=== PATIENT | female | born 1995 | race American Indian/Alaskan Native ===

== ENCOUNTER 2021-04-22 10:23 | Outpatient (CLI) | payer OTHER ==
[2021-04-22 11:39] VITALS: BP 113/59
[2021-04-22 11:58] LABS: Bilirubin,Urine NEG (Negative); Blood,Urine NEG (Negative); Color,Urine Yellow (Yellow); Mucus,Urine 3+ /HPF; Urobilinogen,Urine < 2.0 mg/dL (<2.0)
[2021-04-22 12:03] LABS: Amphetamine Screen,Urine Negative; Benzodiazepines Screen,Urine Negative; Cannabinoid Screen,Urine Negative; Cocaine Screen,Urine Negative; Methadone Screen,Urine Negative; Opiate Screen,Urine Negative
[2021-04-22] MEDS ORDERED: LACTATED RINGERS 1,000 ML IV ONE (12:15)
== END 2021-04-22 12:21 | disposition home or self-care (01) ==
LOC: TRG 10:23 → APU 10:25 → TRG 12:21
PROVIDERS: ATTEND Obstetrics & Gynecology
DX: O26.893 Other specified pregnancy related conditions, third trimester (principal); R20.0 Anesthesia of skin; Z3A.28 28 weeks gestation of pregnancy
CPT/HCPCS: 59025; 80307; 81001

== ENCOUNTER 2021-07-08 09:04 | Inpatient (IN) | payer OTHER ==
[2021-07-08] MEDS ORDERED: TERBUTALINE 1 MG/1 ML INJ SUB-Q PRN (11:37)
[2021-07-08] MEDS ORDERED: LIDOCAINE (2%) 20 MG/1 ML VIAL 20 ML MDV INFILTRATI ONE (11:37)
[2021-07-08] MEDS ORDERED: MINERAL OIL 30 ML ORAL LIQD PO PRN ×2 (11:37→12:23)
[2021-07-08] MEDS ORDERED: OXYTOCIN DRIP 30 UNITS/500 ML BAG IV SCH ×2 (12:00)
[2021-07-08 12:04] LABS: Mean Corpuscular HGB Conc 30 % (30-34); Mean Corpuscular Volume 75 fl (79-97); Platelet Count 270 K/mm3 (140-440); Red Blood Count 3.06 M/mm3 (3.65-5.03); Red Cell Distribution Width 18.8 % (13.2-15.2)
[2021-07-08] MEDS ORDERED: NALOXONE 0.4 MG/1 ML INJ IV PRN (12:23)
[2021-07-08] MEDS ORDERED: miSOPROStol 200 MCG TAB PR PRN (12:23)
[2021-07-08] MEDS ORDERED: METHYLERGONOVINE MALEATE 0.2 MG/ML VIAL IM PRN (12:23)
[2021-07-08] MEDS ORDERED: fentaNYL 100 MCG/2 ML INJ IV PRN (12:23)
[2021-07-08] MEDS ORDERED: LOPERAMIDE 2 MG CAP PO PRN (12:23)
[2021-07-08] MEDS ORDERED: ePHEDrine SULFATE 50 MG/1 ML INJ IV PRN (12:23)
[2021-07-08] MEDS ORDERED: CARBOPROST TROMETHAMINE 250 MCG/1 ML INJ IM PRN (12:23)
[2021-07-08] MEDS ORDERED: BUTORPHANOL 2 MG/1 ML INJ IV PRN (12:23)
[2021-07-08] MEDS ORDERED: OXYTOCIN 10 UNIT/1 ML INJ IM PRN (12:23)
[2021-07-08] MEDS ORDERED: ACETAMINOPHEN 325 MG TAB PO PRN (12:23)
[2021-07-08] MEDS ORDERED: ONDANSETRON 4 MG/2 ML INJ IV PRN (12:23)
[2021-07-08] MEDS: LACTATED RINGERS 1,000 ML IV SCH ×2 (12:29→20:24)
[2021-07-08] MEDS ORDERED: LACTATED RINGERS 1,000 ML IV SCH (12:30)
--- NOTE | 2021-07-08 21:39 | History and Physical Report ---
History of Present Illness Date of examination: 07/08/21 Date of admission: 07/08/21 09:04 Chief complaint: induction History of present illness: 26-year-old -0-0-2 at 39+0 weeks who presents for induction of labor secondary to obesity. The patient initiated her care in the first trimester of her . Her is also complicated by anemia. The patient is GBS negative Past History Past Medical History: other (Obesity) Past Surgical History: other (Orthopedic surgery) Social history: - Obstetrical History Expected Date of Delivery: 07/15/21 Actual Gestation: 39 Week(s) 0 Day(s) : 3 Para: 2 Hx # Term Pregnancies: 2 Number of Pregnancies: 0 Spontaneous Abortions: 0 Induced : 0 Number of Living Children: 2 Medications and Allergies Allergies Allergy/AdvReac Type Severity Reaction Status Date / Time No Known Allergies Allergy Verified 04/22/21 11:11 Home Medications Medication Instructions Recorded Confirmed Last Taken Type RX: No Known Home Medications [No 07/08/21 07/08/21 Unknown History Reported Home Medications] Active Meds: Active Medications Acetaminophen (Acetaminophen 325 Mg Tab) 650 mg PO Q4H PRN PRN Reason: Pain, Mild (1-3) Butorphanol Tartrate (Butorphanol 2 Mg/1 Ml Inj) 1 mg IV Q2H PRN PRN Reason: Pain, Moderate(4-6) LABOR PAIN Carboprost Tromethamine (Carboprost Tromethamine 250 Mcg/1 Ml Inj) 250 mcg IM ONCE PRN PRN Reason: Uterine Bleeding Ephedrine Sulfate (Ephedrine Sulfate 50 Mg/1 Ml Inj) 10 mg IV Q2M PRN PRN Reason: Hypotension Fentanyl (Fentanyl 100 Mcg/2 Ml Inj) 100 mcg IV Q2H PRN PRN Reason: Pain,Severe (7-10) LABOR PAIN Oxytocin/Sodium Chloride (Pitocin/Ns 30 Unit/500ml) 30 units in 500 mls @ 2 mls/hr IV TITR VICENTE; Protocol Last Titration: 07/08/21 17:47 Dose: 10 ml/hr, 10 mls/hr Documented by: Lactated Ringer's (Lactated Ringers) 1,000 mls @ 125 mls/hr IV DIRECT VICENTE Last Admin: 07/08/21 20:24 Dose: 125 mls/hr Documented by: Oxytocin/Sodium Chloride (Pitocin/Ns 30 Unit/500ml) 30 units in 500 mls @ 40 mls/hr IV TITR VICENTE; Protocol Lactated Ringer's (Lactated Ringers) 1,000 mls @ 125 mls/hr IV DIRECT VICENTE Loperamide HCl (Loperamide 2 Mg Cap) 2 mg PO ONCE PRN PRN Reason: give with Hemabate Methylergonovine Maleate (Methylergonovine Maleate 0.2 Mg/Ml Vial) 0.2 mg IM ONCE PRN PRN Reason: Uterine Bleeding Mineral Oil (Mineral Oil 30 Ml Oral Liqd) 30 ml PO QHS PRN PRN Reason: Constipation Mineral Oil (Mineral Oil 30 Ml Oral Liqd) 30 ml PO QHS PRN PRN Reason: Constipation Misoprostol (Misoprostol 200 Mcg Tab) 800 mcg DE ONCE PRN PRN Reason: Uterine Bleeding Naloxone HCl (Naloxone 0.4 Mg/1 Ml Inj) 0.1 mg IV Q2MIN PRN PRN Reason: Res Rate </= 8 or 02 SAT < 92% Ondansetron HCl (Ondansetron 4 Mg/2 Ml Inj) 4 mg IV Q8H PRN PRN Reason: Nausea And Vomiting Oxytocin (Oxytocin 10 Unit/1 Ml Inj) 10 unit IM ONCE PRN PRN Reason: Uterine Bleeding Terbutaline Sulfate (Terbutaline 1 Mg/1 Ml Inj) 0.25 mg SUB-Q ONCE PRN PRN Reason: Hyperstimulation/Hypertonicity Review of Systems All systems: negative Genitourinary: no leakage of fluid, no contractions - Vital Signs Vital signs: Vital Signs Temp 98.3 F 07/08/21 10:57 Temp Pulse Resp BP Pulse Ox 98.2 F 90 20 100/57 100 07/08/21 20:18 07/08/21 21:29 07/08/21 20:18 07/08/21 20:26 07/08/21 21:29 - Physical Exam Breasts: Positive: deferred Cardiovascular: Regular rate Lungs: Positive: Clear to auscultation Abdomen: Positive: normal appearance Results Result Diagrams: 07/08/21 11:15 Abnormal lab results 07/08/21 Range/Units 11:15 RBC 3.06 L (3.65-5.03) M/mm3 Hgb 7.0 L (10.1-14.3) gm/dl Hct 23.0 L (30.3-42.9) % MCV 75 L (79-97) fl MCH 23 L (28-32) pg RDW 18.8 H (13.2-15.2) % All other labs normal. Assessment and Plan - Patient Problems (1) Chronic iron deficiency anemia Current Visit: Yes Status: Acute Plan to address problem: Admit for induction of labor (2) Obesity affecting Current Visit: Yes Status: Acute
[2021-07-09] MEDS ORDERED: ZOLPIDEM 5 MG TAB PO ONE (01:10)
[2021-07-09] MEDS: LACTATED RINGERS 1,000 ML IV SCH (02:32)
[2021-07-09] MEDS ORDERED: ePHEDrine SULFATE 50 MG/1 ML INJ IV PRN (04:18)
[2021-07-09] MEDS ORDERED: NALOXONE 2 MG/2 ML INJ IV PRN (04:18)
--- NOTE | 2021-07-09 04:18 | Anesthesia Consultation ---
Anesthesia Consult and Med Hx Date of service: 07/09/21 - Airway Anesthetic Teeth Evaluation: Good ROM Head & Neck: Adequate Mental/Hyoid Distance: Adequate Mallampati Class: Class II Intubation Access Assessment: Probably Good - Pulmonary Exam CTA: Yes - Cardiac Exam Cardiac Exam: RRR - Pre-Operative Health Status ASA Pre-Surgery Classification: ASA3 Proposed Anesthetic Plan: Epidural - Pulmonary Hx Asthma: No - Cardiovascular System Hx Hypertension: No - Central Nervous System Hx Seizures: No Hx Psychiatric Problems: No - Endocrine Hx Renal Disease: No Hx Hypothyroidism: No Hx Hyperthyroidism: No - Hematic Hx Anemia: Yes Hx Sickle Cell Disease: No - Other Systems Hx Alcohol Use: No Hx Obesity: Yes
--- NOTE | 2021-07-09 05:41 | Progress Note ---
Labor Epidural - Labor Epidural Start Time: 04:29 Stop Time: 05:27 Performed by:: NED BERG Procedure: Patient is requesting epidural for labor pain. H&P, and labs reviewed. Procedure explained, questions answered, consent obtained. Patient in sitting position with blood pressure cuff and pulse ox on and working. Timeout performed immediately before start of procedure. Sterile chlorahexadine 0.5% prep/drape. 3 mL 1% lidocaine skin wheal. Multiple attempts at multiple levels unsuccessful. Ultrasound machine brought to room and back scanned, marked, and repositioned. Patient re-prepped and draped. 18-gauge docBeattead epidural needle advanced to [id number] with saline at 10 cm far left of midline. Epidural catheter advanced to [15] cm, negative aspiration for blood and csf, negative test dose 3 ml 1.5% lidocaine with epinephrine. Epidural dexmedetomidine [30] mcg administered. Steri-strips and tegaderm applied, followed by tape reinforcement. Patient slept through most of the procedure.
[2021-07-09] MEDS: fentaNYL-BUPIV 2 MCG/ML-0.125% 200 MCG/100 ML BAG EPIDURAL SCH ×2 (05:57→13:30)
--- NOTE | 2021-07-09 08:39 | Progress Note ---
Assessment and Plan - Patient Problems (1) Encounter for induction of labor Current Visit: Yes Status: Acute Plan to address problem: AROM @ 0824, clear fluids, tolerated well Continue Pitocin titration as tolerated Consult anethesia for bolus if needed Anticipate (2) Obesity affecting Current Visit: Yes Status: Acute (3) Chronic iron deficiency anemia Current Visit: Yes Status: Acute Plan to address problem: Asymptomatic Resume oral iron supplementation after delivery Subjective - Subjective Date of service: 07/09/21 Principal diagnosis: induction of labor Interval history: 26-year-old -0-0-2 at 39+0 weeks who presents for induction of labor secondary to obesity. The patient initiated her care in the first trimester of her . Her is also complicated by anemia. The patient is GBS negative Patient reports: movement normal, contractions, no new complaints, no vaginal bleeding Objective - Vital Signs Vital Signs: Vital Signs - 12hr 07/08/21 07/08/21 07/08/21 20:39 20:44 20:49 Pulse Rate 85 75 78 Blood Pressure O2 Sat by Pulse 100 100 100 Oximetry O2 Sat by Pulse Oximetry [ Bilateral Throughout] 07/08/21 07/08/21 07/08/21 20:54 20:59 21:04 Pulse Rate 90 89 86 Blood Pressure O2 Sat by Pulse 99 100 100 Oximetry O2 Sat by Pulse Oximetry [ Bilateral Throughout] 07/08/21 07/08/21 07/08/21 21:09 21:14 21:19 Pulse Rate 94 H 84 103 H Blood Pressure O2 Sat by Pulse 100 100 99 Oximetry O2 Sat by Pulse Oximetry [ Bilateral Throughout] 07/08/21 07/08/21 07/08/21 21:24 21:29 21:34 Pulse Rate 97 H 90 105 H Blood Pressure O2 Sat by Pulse 99 100 100 Oximetry O2 Sat by Pulse Oximetry [ Bilateral Throughout] 07/08/21 07/08/21 07/08/21 21:39 21:44 21:49 Pulse Rate 100 H 81 100 H Blood Pressure O2 Sat by Pulse 100 99 99 Oximetry O2 Sat by Pulse Oximetry [ Bilateral Throughout] 07/08/21 07/08/21 07/08/21 21:54 21:59 22:04 Pulse Rate 84 94 H 86 Blood Pressure O2 Sat by Pulse 99 99 98 Oximetry O2 Sat by Pulse Oximetry [ Bilateral Throughout] 07/08/21 07/08/21 07/08/21 22:09 22:14 22:19 Pulse Rate 86 86 92 H Blood Pressure O2 Sat by Pulse 98 99 99 Oximetry O2 Sat by Pulse Oximetry [ Bilateral Throughout] 07/08/21 07/08/21 07/08/21 22:24 22:29 22:34 Pulse Rate 106 H 89 86 Blood Pressure O2 Sat by Pulse 98 98 98 Oximetry O2 Sat by Pulse Oximetry [ Bilateral Throughout] 07/08/21 07/08/21 07/08/21 22:39 22:44 22:49 Pulse Rate 84 90 91 H Blood Pressure O2 Sat by Pulse 99 98 99 Oximetry O2 Sat by Pulse Oximetry [ Bilateral Throughout] 07/08/21 07/08/21 07/08/21 22:58 23:03 23:08 Pulse Rate 104 H 91 H 95 H Blood Pressure O2 Sat by Pulse 100 100 99 Oximetry O2 Sat by Pulse Oximetry [ Bilateral Throughout] 07/08/21 07/08/21 07/08/21 23:13 23:18 23:23 Pulse Rate 84 89 63 Blood Pressure O2 Sat by Pulse 100 99 100 Oximetry O2 Sat by Pulse Oximetry [ Bilateral Throughout] 07/08/21 07/08/21 07/08/21 23:28 23:33 23:38 Pulse Rate 88 91 H 89 Blood Pressure O2 Sat by Pulse 99 99 99 Oximetry O2 Sat by Pulse Oximetry [ Bilateral Throughout] 07/08/21 07/08/21 07/08/21 23:43 23:48 23:53 Pulse Rate 81 86 89 Blood Pressure O2 Sat by Pulse 100 99 100 Oximetry O2 Sat by Pulse Oximetry [ Bilateral Throughout] 07/08/21 07/09/21 07/09/21 23:58 00:03 00:08 Pulse Rate 98 H 98 H 83 Blood Pressure 118/57 O2 Sat by Pulse 100 100 100 Oximetry O2 Sat by Pulse Oximetry [ Bilateral Throughout] 07/09/21 07/09/21 07/09/21 00:13 00:18 00:23 Pulse Rate 87 83 103 H Blood Pressure O2 Sat by Pulse 100 100 100 Oximetry O2 Sat by Pulse Oximetry [ Bilateral Throughout] 07/09/21 07/09/21 07/09/21 00:28 00:33 00:38 Pulse Rate 87 86 83 Blood Pressure O2 Sat by Pulse 99 98 99 Oximetry O2 Sat by Pulse Oximetry [ Bilateral Throughout] 07/09/21 07/09/21 07/09/21 00:43 00:48 00:53 Pulse Rate 87 89 86 Blood Pressure O2 Sat by Pulse 100 99 98 Oximetry O2 Sat by Pulse Oximetry [ Bilateral Throughout] 07/09/21 07/09/21 07/09/21 00:58 01:03 01:08 Pulse Rate 85 90 80 Blood Pressure O2 Sat by Pulse 100 99 98 Oximetry O2 Sat by Pulse Oximetry [ Bilateral Throughout] 07/09/21 07/09/21 07/09/21 01:13 01:18 01:23 Pulse Rate 95 H 82 89 Blood Pressure O2 Sat by Pulse 100 98 98 Oximetry O2 Sat by Pulse Oximetry [ Bilateral Throughout] 07/09/21 07/09/21 07/09/21 01:28 01:33 01:38 Pulse Rate 88 85 89 Blood Pressure O2 Sat by Pulse 99 100 100 Oximetry O2 Sat by Pulse Oximetry [ Bilateral Throughout] 07/09/21 07/09/21 07/09/21 01:43 01:48 01:53 Pulse Rate 85 93 H 95 H Blood Pressure O2 Sat by Pulse 99 100 97 Oximetry O2 Sat by Pulse Oximetry [ Bilateral Throughout] 07/09/21 07/09/21 07/09/21 01:54 01:58 02:03 Pulse Rate 94 H 87 98 H Blood Pressure O2 Sat by Pulse 93 100 100 Oximetry O2 Sat by Pulse Oximetry [ Bilateral Throughout] 07/09/21 07/09/21 07/09/21 02:08 02:13 02:18 Pulse Rate 95 H 88 89 Blood Pressure O2 Sat by Pulse 100 99 99 Oximetry O2 Sat by Pulse Oximetry [ Bilateral Throughout] 07/09/21 07/09/21 07/09/21 02:23 02:26 02:28 Pulse Rate 88 91 H 98 H Blood Pressure O2 Sat by Pulse 99 94 99 Oximetry O2 Sat by Pulse Oximetry [ Bilateral Throughout] 07/09/21 07/09/21 07/09/21 02:33 02:38 02:43 Pulse Rate 92 H 92 H 83 Blood Pressure O2 Sat by Pulse 100 100 95 Oximetry O2 Sat by Pulse Oximetry [ Bilateral Throughout] 07/09/21 07/09/21 07/09/21 02:54 02:59 03:04 Pulse Rate 99 H 101 H 95 H Blood Pressure O2 Sat by Pulse 100 99 98 Oximetry O2 Sat by Pulse Oximetry [ Bilateral Throughout] 07/09/21 07/09/21 07/09/21 03:09 03:14 03:19 Pulse Rate 101 H 93 H 109 H Blood Pressure O2 Sat by Pulse 99 100 99 Oximetry O2 Sat by Pulse Oximetry [ Bilateral Throughout] 07/09/21 07/09/21 07/09/21 03:24 03:29 03:34 Pulse Rate 103 H 99 H 100 H Blood Pressure O2 Sat by Pulse 99 99 99 Oximetry O2 Sat by Pulse Oximetry [ Bilateral Throughout] 07/09/21 07/09/21 07/09/21 03:39 03:44 03:49 Pulse Rate 104 H 100 H 86 Blood Pressure O2 Sat by Pulse 100 99 98 Oximetry O2 Sat by Pulse Oximetry [ Bilateral Throughout] 07/09/21 07/09/21 07/09/21 03:54 03:59 04:04 Pulse Rate 91 H 95 H 92 H Blood Pressure O2 Sat by Pulse 99 100 98 Oximetry O2 Sat by Pulse Oximetry [ Bilateral Throughout] 07/09/21 07/09/21 07/09/21 04:09 04:14 04:19 Pulse Rate 88 96 H 96 H Blood Pressure O2 Sat by Pulse 99 100 99 Oximetry O2 Sat by Pulse Oximetry [ Bilateral Throughout] 07/09/21 07/09/21 07/09/21 04:24 04:26 04:29 Pulse Rate 96 H 92 H 97 H Blood Pressure 126/71 O2 Sat by Pulse 100 100 Oximetry O2 Sat by Pulse Oximetry [ Bilateral Throughout] 07/09/21 07/09/21 07/09/21 04:34 04:36 04:39 Pulse Rate 101 H 100 H 112 H Blood Pressure 118/67 127/76 O2 Sat by Pulse 100 100 Oximetry O2 Sat by Pulse Oximetry [ Bilateral Throughout] 07/09/21 07/09/21 07/09/21 04:42 04:44 04:45 Pulse Rate 93 H 101 H 98 H Blood Pressure 120/66 111/61 O2 Sat by Pulse 100 Oximetry O2 Sat by Pulse Oximetry [ Bilateral Throughout] 07/09/21 07/09/21 07/09/21 04:48 04:49 04:51 Pulse Rate 90 93 H 84 Blood Pressure 110/66 113/61 O2 Sat by Pulse 100 Oximetry O2 Sat by Pulse Oximetry [ Bilateral Throughout] 07/09/21 07/09/21 07/09/21 04:54 04:57 04:59 Pulse Rate 100 H 94 H 98 H Blood Pressure 124/68 O2 Sat by Pulse 100 99 Oximetry O2 Sat by Pulse Oximetry [ Bilateral Throughout] 07/09/21 07/09/21 07/09/21 05:00 05:03 05:04 Pulse Rate 102 H 96 H 96 H Blood Pressure 114/57 105/55 O2 Sat by Pulse 100 Oximetry O2 Sat by Pulse Oximetry [ Bilateral Throughout] 07/09/21 07/09/21 07/09/21 05:06 05:09 05:12 Pulse Rate 107 H 91 H 86 Blood Pressure 119/98 116/59 110/58 O2 Sat by Pulse 93 99 Oximetry O2 Sat by Pulse Oximetry [ Bilateral Throughout] 07/09/21 07/09/21 07/09/21 05:14 05:15 05:18 Pulse Rate 94 H 93 H 88 Blood Pressure 102/56 106/62 O2 Sat by Pulse 98 Oximetry O2 Sat by Pulse Oximetry [ Bilateral Throughout] 07/09/21 07/09/21 07/09/21 05:19 05:21 05:24 Pulse Rate 100 H 86 90 Blood Pressure 111/60 108/62 O2 Sat by Pulse 99 100 Oximetry O2 Sat by Pulse Oximetry [ Bilateral Throughout] 07/09/21 07/09/21 07/09/21 05:27 05:29 05:30 Pulse Rate 107 H 91 H 87 Blood Pressure 109/61 108/62 O2 Sat by Pulse 100 Oximetry O2 Sat by Pulse Oximetry [ Bilateral Throughout] 07/09/21 07/09/21 07/09/21 05:33 05:34 05:36 Pulse Rate 84 84 96 H Blood Pressure 111/59 114/58 O2 Sat by Pulse 100 Oximetry O2 Sat by Pulse Oximetry [ Bilateral Throughout] 07/09/21 07/09/21 07/09/21 05:39 05:42 05:44 Pulse Rate 93 H 85 80 Blood Pressure 123/60 113/58 O2 Sat by Pulse 99 100 Oximetry O2 Sat by Pulse Oximetry [ Bilateral Throughout] 07/09/21 07/09/21 07/09/21 05:45 05:48 05:49 Pulse Rate 84 80 84 Blood Pressure 117/58 111/53 O2 Sat by Pulse 100 Oximetry O2 Sat by Pulse Oximetry [ Bilateral Throughout] 07/09/21 07/09/21 07/09/21 05:51 05:54 05:57 Pulse Rate 82 81 80 Blood Pressure 116/56 108/54 O2 Sat by Pulse 100 Oximetry O2 Sat by Pulse Oximetry [ Bilateral Throughout] 07/09/21 07/09/21 07/09/21 05:59 06:02 06:04 Pulse Rate 87 77 80 Blood Pressure 112/55 O2 Sat by Pulse 99 100 Oximetry O2 Sat by Pulse Oximetry [ Bilateral Throughout] 07/09/21 07/09/21 07/09/21 06:09 06:14 06:18 Pulse Rate 86 83 81 Blood Pressure 110/55 O2 Sat by Pulse 98 99 Oximetry O2 Sat by Pulse Oximetry [ Bilateral Throughout] 07/09/21 07/09/21 07/09/21 06:19 06:24 06:29 Pulse Rate 87 87 79 Blood Pressure O2 Sat by Pulse 99 98 98 Oximetry O2 Sat by Pulse Oximetry [ Bilateral Throughout] 07/09/21 07/09/21 07/09/21 06:33 06:34 06:39 Pulse Rate 90 90 87 Blood Pressure 114/58 O2 Sat by Pulse 100 100 Oximetry O2 Sat by Pulse Oximetry [ Bilateral Throughout] 07/09/21 07/09/21 07/09/21 06:44 06:48 06:49 Pulse Rate 84 80 82 Blood Pressure 120/58 O2 Sat by Pulse 98 98 Oximetry O2 Sat by Pulse Oximetry [ Bilateral Throughout] 07/09/21 07/09/21 07/09/21 06:54 06:59 07:03 Pulse Rate 82 81 75 Blood Pressure 126/61 O2 Sat by Pulse 99 98 Oximetry O2 Sat by Pulse Oximetry [ Bilateral Throughout] 07/09/21 07/09/21 07/09/21 07:04 07:09 07:14 Pulse Rate 78 80 78 Blood Pressure O2 Sat by Pulse 99 99 98 Oximetry O2 Sat by Pulse Oximetry [ Bilateral Throughout] 07/09/21 07/09/21 07/09/21 07:18 07:19 07:24 Pulse Rate 81 81 85 Blood Pressure 118/57 O2 Sat by Pulse 98 100 Oximetry O2 Sat by Pulse Oximetry [ Bilateral Throughout] 07/09/21 07/09/21 07/09/21 07:29 07:33 07:34 Pulse Rate 87 78 81 Blood Pressure 120/57 O2 Sat by Pulse 100 99 Oximetry O2 Sat by Pulse Oximetry [ Bilateral Throughout] 07/09/21 07/09/21 07/09/21 07:39 07:44 07:47 Pulse Rate 78 78 Blood Pressure O2 Sat by Pulse 100 100 Oximetry O2 Sat by Pulse 100 Oximetry [ Bilateral Throughout] 07/09/21 07/09/21 07/09/21 07:48 07:49 07:54 Pulse Rate 78 79 79 Blood Pressure 122/57 O2 Sat by Pulse 100 99 Oximetry O2 Sat by Pulse Oximetry [ Bilateral Throughout] 07/09/21 07/09/21 07/09/21 07:59 08:04 08:09 Pulse Rate 88 81 84 Blood Pressure 180/83 O2 Sat by Pulse 100 100 100 Oximetry O2 Sat by Pulse Oximetry [ Bilateral Throughout] 07/09/21 07/09/21 07/09/21 08:14 08:17 08:18 Pulse Rate 83 87 84 Blood Pressure 156/75 O2 Sat by Pulse 100 94 Oximetry O2 Sat by Pulse Oximetry [ Bilateral Throughout] 07/09/21 07/09/21 07/09/21 08:19 08:24 08:29 Pulse Rate 96 H 85 86 Blood Pressure O2 Sat by Pulse 99 100 100 Oximetry O2 Sat by Pulse Oximetry [ Bilateral Throughout] 07/09/21 07/09/21 08:33 08:34 Pulse Rate 81 83 Blood Pressure 147/74 O2 Sat by Pulse 100 Oximetry O2 Sat by Pulse Oximetry [ Bilateral Throughout] - Exam Breasts: deferred Cardiovascular: Regular rate Lungs: Normal air movement FHR: category 1 Uterine Contraction Monitor Mode: External Cervical Dilatation: 4.5 (vertex) Cervical Effacement Percentage: 80 (Pitocin @ 8 mu/min) station: 0 Uterine Contraction Frequency (min): 2-3 Uterine Contraction Pattern: Regular Uterine Tone Measurement Phase: Resting Uterine Contraction Intensity: Mild Extremities: edema Deep Tendon Reflex Grade: Normal +2 - Labs Labs: Abnormal Labs 07/08/21 11:15 RBC 3.06 L Hgb 7.0 L Hct 23.0 L MCV 75 L MCH 23 L RDW 18.8 H Laboratory Results - last 24 hr 07/08/21 07/08/21 07/08/21 11:15 11:15 11:50 WBC 8.7 RBC 3.06 L Hgb 7.0 L Hct 23.0 L MCV 75 L MCH 23 L MCHC 30 RDW 18.8 H Plt Count 270 Coronavirus (PCR) Negative Blood Type O POSITIVE Antibody Screen Negative
[2021-07-09] MEDS ORDERED: BUPIVACAINE/PF (0.25%) 2.5 MG/ML 10 ML VIAL INFILTRATI ONE (10:17)
[2021-07-09] MEDS ORDERED: ePHEDrine SULFATE 50 MG/1 ML INJ ONE (10:39)
--- NOTE | 2021-07-09 11:25 | Progress Note ---
Labor Epidural - Labor Epidural Start Time: 10:43 Stop Time: 11:02 Performed by:: FARIDA JONES Procedure: Patient in labor s/p epidural placement with complaint of poorly controlled pain. On assessment, patient reports no relief of labor pain and has no numbness or weakness of lower extremities. There was no improvement with bolus dosing. She elects for replacement of epidural. Patient placed in sitting position with monitors applied. Previous epidural removed with tip intact. Timeout performed immediately before start of procedure. Prep/drape in usual sterile fashion. Skin anesthetized w/ 3 mL 1% lidocaine at L[2]-L[3] interspace. 18-gauge Money360 epidural needle advanced to AFIA with saline at [7] cm. No blood/CSF noted via epidural needle. 27g spinal needle advanced into intrathecal space until clear, free flowing CSF noted. 0.5cc 0.75% hyperbaric bupivacaine + 0.5cc sterile saline injected into intrathecal space. Spinal needle removed and epidural catheter advanced to [12] cm. Negative aspiration of blood and CSF via catheter, negative response to test dose 3 ml 1.5% lidocaine w/ epi. Sterile dressing applied followed by tape reinforcement. Patient tolerated procedure well. No immediate complications noted. Patient reported improvement in pain after returning to supine position. VS stable throughout.
[2021-07-09] MEDS ORDERED: diphenhydrAMINE 25 MG CAP PO PRN (14:44)
[2021-07-09] MEDS ORDERED: WITCH HAZEL/ GLYCERIN PAD TP PRN (14:44)
[2021-07-09] MEDS ORDERED: PROMETHAZINE 25 MG RECT SUPP PR PRN (14:44)
[2021-07-09] MEDS ORDERED: LANOLIN/ZINC/DIMETHICONE (LANSINOH) 7 GM TP PRN (14:44)
[2021-07-09] MEDS ORDERED: MAGNESIUM HYDROXIDE (MOM) ORAL LIQD UDC PO PRN (14:44)
[2021-07-09] MEDS ORDERED: PROMETHAZINE 25 MG TAB PO PRN (14:44)
--- NOTE | 2021-07-09 14:51 | Procedure Note ---
OB Delivery Note - Delivery Date of Delivery: 07/09/21 (1420) Surgeon: JAYDEN DORAN (CNM) Estimated blood loss: 500cc - Vaginal Delivery presentation: vertex Delivery position: OA (LUIS) Intrapartum events: none Delivery induction: oxytocin Delivery augmentation: rupture of membranes (AROM @ 0824, clear fluids) Delivery monitor: external FHT, external uterine Route of delivery: Delivery placenta: spontaneous (1425) Delivery cord: 3 umbilical vessels Episiotomy: none Delivery laceration: none Anesthesia: epidural Delivery comments: of viable crying female infant placed directly to maternal abdomen. Cord double clamped, cut by FOB after cessation of pulsation. Placenta spontaneously delivered, sent to pathology to r/o chorioamnioitis secondary to foul odor noted. Uterus firm @ U-2, hemostasis maintained, Methergine 0.2 mg IM x 1 dose given prophylaxically. Mother and baby safe, stable and left in care of RN. - Infant A at 1 minute: 8 at 5 minutes: 9 Gender: Female (Weight: 3360 gms (7lbs 7ozs) 20 inches)
[2021-07-09] MEDS: IBUPROFEN 600 MG TAB PO SCH (17:48)
[2021-07-09] MEDS: FERROUS SULFATE 325 MG TAB PO SCH (23:04)
[2021-07-09] MEDS: oxyCODONE /ACETAMINOPHEN 5-325MG TAB PO PRN (23:05)
[2021-07-10] MEDS: IBUPROFEN 600 MG TAB PO SCH ×2 (00:02→12:30)
[2021-07-10 04:35] LABS: Hematocrit 21.9 % (30.3-42.9); Hemoglobin 6.9 gm/dl (10.1-14.3)
[2021-07-10] MEDS: oxyCODONE /ACETAMINOPHEN 5-325MG TAB PO PRN (06:24)
[2021-07-10] MEDS: FERROUS SULFATE 325 MG TAB PO SCH ×2 (08:15→14:34)
--- NOTE | 2021-07-10 08:27 | Discharge Summary ---
Providers - Providers Date of Admission: 07/08/21 09:04 Date of discharge: 07/10/21 Attending physician: JAQUELINE OWENS Primary care physician: JAQUELINE OWENS Hospitalization Reason for admission: induction of labor Delivery: Episiotomy: none Laceration: none Other procedures: none complications: none Discharge diagnosis: IUP at term delivered baby: female Hospital course: 26-year-old -0-0-2 at 39+0 weeks who presents for induction of labor secondary to obesity. The patient initiated her care in the first trimester of her . Her is also complicated by anemia. The patient is GBS negative. Delivered viable female . Condition at discharge: Good Disposition: 01 HOME / SELF CARE / HOMELESS - Discharge Diagnoses (1) Obesity affecting Status: Acute (2) Chronic iron deficiency anemia Status: Acute Comment: Asymptomatic Continue daily oral iron supplementation as ordered Increase iron rich foods into diet (3) Status post normal vaginal delivery Status: Acute Plan - Discharge Medications Prescriptions: Ferrous Sulfate [Feosol 325 MG tab] 325 mg PO TID 30 Days #90 tablet Ibuprofen [Motrin 600 MG tab] 800 mg PO Q8H 7 Days #21 tablet - Provider Discharge Summary Activity: routine, no sex for 6 weeks, no heavy lifting 4 weeks, no strenuous exercise Diet: other (Iron rich diet) Instructions: routine Additional instructions: [] Smoking cessation referral if applicable(refer to patient education folder for contact #) [] Refer to [facility]'s [facility] Booklet Call your doctor immediately for: * Fever > 100.5 * Heavy vaginal bleeding ( >1 pad per hour) * Severe persistent headache * Shortness of breath * Reddened, hot, painful area to leg or breast - Follow up plan Follow up: JAQUELINE OWENS MD [Primary Care Provider] - 6 Weeks
[2021-07-10] MEDS ORDERED: PRENATAL VIT27-FE FUMARATE-FOLIC ACID VIT TAB PO SCH (10:00)
--- NOTE | 2021-07-10 16:01 | Post Anesthesia Evaluation ---
- Post Anesthesia Evaluation Patient Participated: Yes Airway Patent: Yes Stable Respiratory Function: Yes Nausea/Vomiting: No Temp > 96.8F: Yes Pain Manageable: Yes Adequeate Hydration: Yes Anesthesia Complications: No Block Receding Appropriately: Yes
[2021-07-10 17:43] VITALS: BP 114/64
== END 2021-07-10 18:05 | disposition home or self-care (01) | DRG 775 ==
LOC: LD 09:04 → OB 07-09 16:53
PROVIDERS: ADMIT Obstetrics & Gynecology; ATTEND Obstetrics & Gynecology
PROC: 10E0XZZ Delivery of Products of Conception, External Approach (ICD-10-PCS; principal; 2021-07-09)
PROC: 3E033VJ Introduction of Other Hormone into Peripheral Vein, Percutaneous Approach (ICD-10-PCS; 2021-07-09)
PROC: 10907ZC Drainage of Amniotic Fluid, Therapeutic from Products of Conception, Via Natural or Artificial Opening (ICD-10-PCS; 2021-07-09)
PROC: 3E0R3BZ Introduction of Anesthetic Agent into Spinal Canal, Percutaneous Approach (ICD-10-PCS; 2021-07-09)
PROC: 00HU33Z Insertion of Infusion Device into Spinal Canal, Percutaneous Approach (ICD-10-PCS; 2021-07-09)
DX: O99.02 Anemia complicating childbirth (principal); Z37.0 Single live birth; D50.8 Other iron deficiency anemias; Z3A.39 39 weeks gestation of pregnancy; O99.214 Obesity complicating childbirth; Z20.822 Contact with and (suspected) exposure to COVID-19
CPT/HCPCS: 36415; 85014; 85018; 85027; 86850; 86900; 86901; 88307; 99211; G0378; G0463; J2210; J2590; J7120; U0003